=== PATIENT | male | born 1960 | race African-American/Black ===

== ENCOUNTER 2018-06-27 17:08 | Emergency (ER) | payer MEDICAID ==
[~2018-06-27] VITALS: Ht 180.3 cm; Wt 90.0 kg
[~2018-06-27 17:08] MED LIST: ASPI-1159 PO; BRIM.2 BOTHEYE; HYDR-4001 PO; MULT-1241 PO; TIMO5DRO32 OP
[2018-06-27] MEDS ORDERED: ONDANSETRON HCL 4MG/2ML INJ IV STA (18:15)
[2018-06-27] MEDS ORDERED: SODIUM CHLORIDE 0.9% 1,000 ML IV ONE (18:15)
[2018-06-27 18:41] LABS: BASOPHILS % 1.6 % (0.0-2.0); EOSINOPHILS % 1.3 % (0.0-5.0); HEMOGLOBIN. 11.5 g/dL (14.0-18.0); LYMPHOCYTES % 47.9 % (20.0-50.0); MEAN CORPUSCULAR VOLUME 75.4 fL (80.0-94.0); MEAN PLATELET VOLUME 7.3 fl (7.4-10.4); MONOCYTES % 12.8 % (2.0-8.0); NEUTROPHILS % 36.4 % (40.0-76.0); PLATELET 261 x1000/uL (130-400); RED BLOOD CELL COUNT 4.77 mill/uL (4.7-6.1)
[2018-06-27 18:45] LABS: CHLORIDE 104 mEq/L (98-107)
[2018-06-27] MEDS ORDERED: BACITRACIN ZINC OINT UDPKT TOP ONE (18:45)
[2018-06-27] MEDS ORDERED: LIDOCAINE 1%/EPI 1:100,000 10 ML VIAL IJ ONE (18:45)
[2018-06-27] MEDS ORDERED: TETANUS, DIPHTHERIA, PERTUSSIS VAC/PF 0.5ML (>7YR OLD) IM ONE (18:45)
[2018-06-27 19:09] LABS: CREATINE KINASE 217 IU/L (39-308)
[2018-06-27 19:10] LABS: ETHANOL BLOOD 316 mg/dL
[2018-06-27] MEDS ORDERED: LIDOCAINE HCL/EPINEPHRINE 1%-EPI 1:100,000 20 ML VIAL INFIL NR (19:15)
[2018-06-28 08:35] VITALS: BP 111/68
== END 2018-06-28 08:59 | disposition home or self-care (01) ==
LOC: ER 17:48
DX: S01.01XA Laceration without foreign body of scalp, initial encounter (principal); T51.0X1A Toxic effect of ethanol, accidental (unintentional), initial encounter; G92 Toxic encephalopathy; D64.9 Anemia, unspecified; I10 Essential (primary) hypertension; H40.9 Unspecified glaucoma; W18.39XA Other fall on same level, initial encounter; Y93.89 Activity, other specified; Y92.89 Other specified places as the place of occurrence of the external cause; Y99.8 Other external cause status; Z79.82 Long term (current) use of aspirin; Z79.899 Other long term (current) drug therapy; Y90.8 Blood alcohol level of 240 mg/100 ml or more
CPT/HCPCS: 12011; 36415; 70450; 80053; 82550; 85025; 90471; 90715; 93005; 96374; 99285; G0482; J2405; J3490; J7030; Z7610

== ENCOUNTER 2019-05-15 02:15 | Emergency (ER) | payer MEDICAID ==
[~2019-05-15] VITALS: Ht 182.9 cm; Wt 86.0 kg
[~2019-05-15 02:15] MED LIST changes: -ASPI-1159 PO; +ASPI-1393 PO
[2019-05-15 04:26] LABS: CHLORIDE 114 mEq/L (98-107)
[2019-05-15 04:40] LABS: HEMATOCRIT. 40.4 % (42.0-52.0); HEMOGLOBIN. 13.1 g/dL (14.0-18.0); MEAN CORPUSCULAR HEMOGLOBIN 24.9 pg (28.0-32.0); MEAN CORPUSCULAR VOLUME 77.2 fL (80.0-94.0); MEAN PLATELET VOLUME 7.4 fl (7.4-10.4); PLATELET 243 x1000/uL (130-400); RED BLOOD CELL COUNT 5.24 mill/uL (4.7-6.1); RED CELL DISTRIBUTION WIDTH 16.1 % (11.6-14.6)
[2019-05-15 04:43] LABS: ETHANOL BLOOD 301 mg/dL
[2019-05-15 05:33] LABS: CLARITY URINE CLEAR (CLEAR); COLOR URINE YELLOW (YELLOW); KETONES URINE NEGATIVE (NEGATIVE); LEUKOCYTE ESTERASE URINE NEGATIVE (NEGATIVE); NITRITE URINE NEGATIVE (NEGATIVE); OCCULT BLOOD URINE NEGATIVE (NEGATIVE); PROTEIN URINE NEGATIVE (NEGATIVE); SPECIFIC GRAVITY URINE 1.012 (1.005-1.030); UROBILINOGEN URINE 0.2 E.U./dL (0.2-1.0)
[2019-05-15 05:50] LABS: PLATELET ESTIMATE NORMAL
[2019-05-15 06:12] LABS: *AMPHETAMINES SCREEN URINE NEGATIVE (NEGATIVE); *BARBITURATES SCREEN URINE NEGATIVE (NEGATIVE); *BENZODIAZEPINES SCREEN URINE NEGATIVE (NEGATIVE); *COCAINE SCREEN URINE NEGATIVE (NEGATIVE); METHADONE URINE SCREEN NEGATIVE (NEGATIVE); OPIATES URINE SCREEN NEGATIVE (NEGATIVE); PHENCYCLIDINE URINE SCREEN NEGATIVE (NEGATIVE)
[2019-05-15 06:13] LABS: CANNABINOID URINE SCREEN PRESUMTIVE POSITIVE (NEGATIVE)
[2019-05-15 08:30] VITALS: BP 122/74
== END 2019-05-15 08:30 | disposition home or self-care (01) ==
LOC: ER 02:15
DX: F10.129 Alcohol abuse with intoxication, unspecified (principal); Y90.8 Blood alcohol level of 240 mg/100 ml or more
CPT/HCPCS: 36415; 70450; 80053; 80305; 80320; 81003; 82962; 85025; 99284; Z7610; 81025; G0480

== ENCOUNTER 2019-08-06 03:33 | Emergency (ER) | payer MEDICAID ==
[~2019-08-06] VITALS: Ht 195.6 cm; Wt 104.0 kg
[2019-08-06] MEDS ORDERED: SODIUM CHLORIDE 0.9% 1,000 ML IV ONE (04:17)
[2019-08-06] MEDS ORDERED: LEVETIRACETAM 1000MG/100ML 100 ML IV ONE (04:30)
[2019-08-06 04:48] LABS: HEMATOCRIT. 41.1 % (42.0-52.0); HEMOGLOBIN. 13.1 g/dL (14.0-18.0); MEAN CORPUSCULAR HEMOGLOBIN 24.7 pg (28.0-32.0); MEAN CORPUSCULAR VOLUME 77.8 fL (80.0-94.0); MEAN PLATELET VOLUME 7.5 fl (7.4-10.4); PLATELET 230 x1000/uL (130-400); RED BLOOD CELL COUNT 5.28 mill/uL (4.7-6.1); RED CELL DISTRIBUTION WIDTH 15.3 % (11.6-14.6)
[2019-08-06 04:53] LABS: CHLORIDE 109 mEq/L (98-107)
[2019-08-06 04:57] LABS: ETHANOL BLOOD < 10 mg/dL
[2019-08-06 05:26] LABS: NUCLEATED RED BLOOD CELLS 1 /100 WBC
[2019-08-06 05:27] LABS: PLATELET ESTIMATE NORMAL
[2019-08-06 06:48] LABS: CLARITY URINE CLEAR (CLEAR); COLOR URINE YELLOW (YELLOW); KETONES URINE NEGATIVE (NEGATIVE); LEUKOCYTE ESTERASE URINE NEGATIVE (NEGATIVE); NITRITE URINE NEGATIVE (NEGATIVE); OCCULT BLOOD URINE TRACE (NEGATIVE); PH URINE 5.5 (4.5-8.0); PROTEIN URINE TRACE (NEGATIVE); UROBILINOGEN URINE 0.2 E.U./dL (0.2-1.0)
[2019-08-06 07:08] LABS: *AMPHETAMINES SCREEN URINE NEGATIVE (NEGATIVE); *BARBITURATES SCREEN URINE NEGATIVE (NEGATIVE); *BENZODIAZEPINES SCREEN URINE NEGATIVE (NEGATIVE); *COCAINE SCREEN URINE NEGATIVE (NEGATIVE); METHADONE URINE SCREEN NEGATIVE (NEGATIVE); OPIATES URINE SCREEN NEGATIVE (NEGATIVE)
[2019-08-06 07:09] LABS: CANNABINOID URINE SCREEN PRESUMTIVE POSITIVE (NEGATIVE); PHENCYCLIDINE URINE SCREEN NEGATIVE (NEGATIVE)
[2019-08-06 08:00] VITALS: BP 140/75
== END 2019-08-06 10:00 | disposition home or self-care (01) ==
LOC: ER 03:54
DX: R56.9 Unspecified convulsions (principal); F17.200 Nicotine dependence, unspecified, uncomplicated; F10.20 Alcohol dependence, uncomplicated; Z79.899 Other long term (current) drug therapy; Z82.49 Family history of ischemic heart disease and other diseases of the circulatory system; Z79.82 Long term (current) use of aspirin; Y90.9 Presence of alcohol in blood, level not specified
CPT/HCPCS: 36415; 70450; 80053; 80305; 80320; 81003; 85025; 96365; 96366; 99284; J1953; J7030; G0480